=== PATIENT | female | born 1985 | race African-American/Black ===

== ENCOUNTER 2020-06-03 13:18 | Observation (INO) | payer SELFPAY ==
--- NOTE | 2020-06-03 13:29 | PDOC ---
Rapid Medical Evaluation Chief Complaint: Blood Pressure Problem Time Seen by Provider: 06/03/20 13:25 Medical Evaluation: Allergies Allergy/AdvReac Type Severity Reaction Status Date / Time No Known Allergies Allergy Verified 04/02/13 23:15 06/03/20 13:25 I have performed a brief in-person evaluation of this patient. The patient presents with a chief complaint of:sent to ED for elevated BP. Reports dizziness and nausea yesterday similar to when BP is high per pt. Started on nifedipine and labetalol 2 weeks ago. Was not on meds prior to then. Pt crying at triage, states "It's too much". Took leave of absence from job recently Pertinent physical exam findings: BP 195/109, HR 113 I have ordered the following:labs The patient will proceed to the ED for further evaluation Discharge Disposition - Diagnosis Elevated blood alcohol level Qualifiers: Blood alcohol level: level not specified Qualified Code(s): R78.0 - Finding of alcohol in blood - Referrals - Patient Instructions - Post Discharge Activity
[2020-06-03] MEDS ORDERED: LABETALOL HCL 5 MG/1 ML (100MG/20 ML VIAL) IVPUSH ONE ×2 (13:48→16:15)
[2020-06-03] MEDS ORDERED: LABETALOL HCL 5 MG/1 ML (200MG/40ML VIAL) IVPB ONE (16:16)
--- NOTE | 2020-06-03 16:21 | PDOC ---
History of Present Illness - General Chief Complaint: Blood Pressure Problem Stated Complaint: BP PROBLEM Time Seen by Provider: 06/03/20 13:25 History Source: Patient Exam Limitations: No Limitations - History of Present Illness Initial Comments: 06/03/20 16:15 34-year-old female recently diagnosed with hypertension, started on labetalol and Norvasc presents to the ER complaining of generalized weakness, malaise, headache, nausea, nonbloody nonbilious vomiting and loose watery stools. Patient reports that she was started on antihypertensive regiment in the ER and does not have a primary care physician. Patient denies that current headache is the worst headache of her life. Denies chest or abdominal pain. Patient denies shortness of breath. Patient reinforces that she feels "out of it".There is no history of travel or sick contact. Past History - Medical History Allergies/Adverse Reactions: Allergies Allergy/AdvReac Type Severity Reaction Status Date / Time No Known Allergies Allergy Verified 06/03/20 13:28 Home Medications: Ambulatory Orders Labetalol HCl [Normodyne -] 200 mg PO BID 06/03/20 Nifedipine [Procardia Xl] 30 mg PO DAILY 06/03/20 COPD: No HTN: Yes - Reproductive History (#): 4 Para: 0 - Psycho-Social/Smoking History Smoking Status: No Smoking History: Never smoked Number of Cigarettes Smoked Daily: 0 - Substance Abuse Hx (Audit-C & DAST Scrn) How often the patient has a drink containing alcohol: Never Score: In Men: 4 or > Positive; In Women: 3 or > Positive: 0 Screen Result (Pos requires Nsg. Audit-10AR): Negative Review of Systems - Review of Systems Comments:: 06/03/20 16:17 REVIEW OF SYSTEMS CONSTITUTIONAL: No fever, no chills, +fatigue EYES: No visual changes ENT: No ear pain, no sore throat CARDIOVASCULAR: No chest pain, no palpitations RESPIRATORY: No cough, no SOB GI: No abdominal pain, + nausea, + vomiting, no constipation, + diarrhea GENITOURINARY: No dysuria, no frequency, no hematuria MUSKULOSKELETAL: No backpain, no joint pain, no myalgias SKIN: No rash NEURO: + headache *Physical Exam - Vital Signs Last Vital Signs Temp Pulse Resp BP Pulse Ox 98.7 F 85 18 156/93 100 06/03/20 13:24 06/03/20 15:00 06/03/20 15:00 06/03/20 15:00 06/03/20 15:00 - Physical Exam 06/03/20 16:17 EXAMINATION CONSTITUTIONAL: Awake and alert; well-nourished; in no apparent distress HEAD: Normocephalic; atraumatic EYES: PERRL; EOM intact ENMT: External appears normal; Tongue coated (nonremovable) NECK: Supple; non-tender; no jvd; no cervical lymphadenopathy CARD: Normal S1, S2; no murmurs, rubs, or gallops RESP: Normal chest excursion with respiration; breath sounds clear and equal bilaterally; no wheezes, rhonchi, or rales ABD: Soft, non-distended; non-tender; no palpable organomegaly, no palpable hernias EXT: Normal ROM in all four extremities; non-tender to palpation; distal pulses intact SKIN: Warm, dry, no rash NEURO: Cranial nerves II through XII are grossly intact; motor is five 5 x 4; no pronation drift. ED Treatment Course - LABORATORY CBC & Chemistry Diagram: 06/03/20 16:05 06/03/20 16:05 Medical Decision Making - Medical Decision Making 06/03/20 16:19 Patient is a 34-year-old female, recently diagnosed with hypertension, presents with headache (not the worst headache of her life), nausea, vomiting and diarrhea associated with weakness and malaise. Initially patient noted to be hypertensive. CT of head showed no evidence of acute intracranial pathology, no evidence of cerebral edema is noted. Patient remains hypertensive at this time, will administer labetalol IV-20 mg. EKG shows normal sinus rhythm, LVH, prolonged QTC. Will obtain CBC/CMP/mag. Will reassess. Discharge - Discharge Information Problems reviewed: Yes Clinical Impression/Diagnosis: Hypertensive urgency - Follow up/Referral - Patient Discharge Instructions - Post Discharge Activity
[2020-06-03 16:41] LABS: BASO % 0.9 % (0-2.0); EOS % 0.2 % (0-4.5); HEMATOCRIT 33.3 % (32.4-45.2); HEMOGLOBIN 10.8 GM/dL (10.7-15.3); LYMPH % 15.5 % (8-40); MCH 29.5 pg (25.7-33.7); MCHC 32.6 g/dl (32.0-36.0); MEAN CELL VOLUME 90.6 fl (80-96); MEAN PLT VOLUME 9.1 fl (7.5-11.1); MONO % 5.3 % (3.8-10.2); NEUT % 78.1 % (42.8-82.8); PLATELET COUNT 329 K/MM3 (134-434); RBC 3.67 M/mm3 (3.60-5.2); RDW 19.6 % (11.6-15.6); WHITE BLOOD COUNT 5.2 K/mm3 (4.0-10.0)
[2020-06-03 16:47] LABS: PH,URINE >= 9.0 (5.0-8.0); URINE APPEARANCE CLEAR; URINE BILIRUBIN NEGATIVE (NEGATIVE); URINE COLOR YELLOW; URINE GLUCOSE (UA) NEGATIVE (NEGATIVE); URINE KETONE NEGATIVE (NEGATIVE); URINE LEUK ESTERASE NEGATIVE (NEGATIVE); URINE NITRITE NEGATIVE (NEGATIVE); URINE PROTEIN NEGATIVE (NEGATIVE); URINE UROBILINOGEN 0.2 mg/dL (0.2-1.0)
[2020-06-03 17:23] LABS: BILIRUBIN,TOTAL 0.5 mg/dL (0.2-1); BLOOD UREA NITROGEN 8.2 mg/dL (7-18); CREATININE 0.9 mg/dL (0.55-1.3); MAGNESIUM 1.6 mg/dL (1.8-2.4); POTASSIUM 3.8 mmol/L (3.5-5.1); TOT PROT 7.8 g/dl (6.4-8.2)
[2020-06-03] MEDS ORDERED: FAMOTIDINE 20 MG/50 ML IVPB 20 MG/50 ML MG IVPB ONE ×2 (18:02→19:43)
[2020-06-03] MEDS ORDERED: LABETALOL HCL 200 MG TABLET (FP) PO ONE (18:02)
[2020-06-03] MEDS ORDERED: NIFEdipine 10 MG CAPSULE (FP) PO ONE (18:02)
[2020-06-03] MEDS ORDERED: ONDANSETRON 4 MG/2 ML VIAL IVPUSH ONE (18:02)
[2020-06-03] MEDS ORDERED: MAG HYDROX/AL HYDROX/SIMETH -MYLANTA- ORAL SUSPENSION PO ONE (18:02)
--- NOTE | 2020-06-03 18:11 | PDOC ---
*Physical Exam - Vital Signs Last Vital Signs Temp Pulse Resp BP Pulse Ox 98.7 F 85 18 169/96 100 06/03/20 13:24 06/03/20 15:00 06/03/20 15:00 06/03/20 17:03 06/03/20 15:00 ED Treatment Course - LABORATORY CBC & Chemistry Diagram: 06/03/20 16:05 06/03/20 16:05 - ADDITIONAL ORDERS Additional order review: Laboratory Results 06/03/20 06/03/20 16:05 16:05 Sodium 144 Potassium 3.8 Chloride 108 H Carbon Dioxide 24 Anion Gap 12 BUN 8.2 Creatinine 0.9 Est GFR (CKD-EPI)AfAm 95.34 Est GFR (CKD-EPI)NonAf 82.26 Random Glucose 84 Calcium 9.0 Magnesium 1.6 L Total Bilirubin 0.5 AST 23 ALT 25 Alkaline Phosphatase 55 Troponin I 0.32 H Total Protein 7.8 Albumin 4.0 Urine Color Yellow Urine Appearance Clear Urine pH >= 9.0 H D Ur Specific [place] 1.009 L Urine Protein Negative Urine Glucose (UA) Negative Urine Ketones Negative Urine Blood Negative Urine Nitrite Negative Urine Bilirubin Negative Urine Urobilinogen 0.2 Ur Leukocyte Esterase Negative 06/03/20 16:05 RBC 3.67 MCV 90.6 MCHC 32.6 RDW 19.6 H MPV 9.1 Neutrophils % 78.1 Lymphocytes % 15.5 Monocytes % 5.3 Eosinophils % 0.2 Basophils % 0.9 - Medications Given in the ED: ED Medications Discontinued Medications Generic Name Dose Route Start Last Admin Trade Name Freq PRN Reason Stop Dose Admin Labetalol HCl 20 mg 06/03/20 13:48 06/03/20 14:50 Normodyne Injection - IVPUSH 06/03/20 13:49 Not Given ONCE ONE Labetalol HCl 20 mg 06/03/20 16:15 06/03/20 16:31 Normodyne Injection - IVPUSH 06/03/20 16:16 Not Given ONCE ONE ED Progress Note - Progress Note Progress Note: 06/03/20 18:05 Recieved pt on signout at 1630pm from Dr. Pandey. Briefly 34yoF w/ recent dx of HTN presented w/ headache, malaise, nausea, vomiting and elevated BP. Pt had screening labs unremrakble, nonishcemic EKG, nomal HCT, BP improvement w/ labetalol in ED and plan for completion of lab results and admit for hypertensive urgency. Pt reevaluated by me. She was noted to be going to the bathroom repeatedly in the ED w/ vomiting. Pt states she has acute onset of n/v/d x today, unknown trigger. No more headache, feels malaise and "run down." States that she vomited up her antiHTN pills this morning and has not tolerating PO today. No abd pain, no hematemesis, no brbpr, unknown if ate unusual food, no known sick contacts, no fevers. Vital signs reviewed, pt w/ persistent HTN in the ED -- not severe. NAD RRR CTABL abd obese, soft, NTND, no guarding, no rebound. gait, balance, speech WNL A&O x 3 Labs reviewed, normal LFTs, normal Bili, no lipase, normal renal fxn. Unclear at this this if elevated BP is causing n/v/d or if lack of BP medications today becuase of n/v/d is causing elevated BP. Will try sxs control and administration of home labetalol dose and small dose immed release nifedipine (takes nifed XL in the morning), IVF for fluid losses. Continue with plan for admission and obs w/ sxs and BP management. Discharge - Discharge Information Problems reviewed: Yes Clinical Impression/Diagnosis: Hypertensive urgency, Nausea and vomiting Condition: Good - Admission Yes - Follow up/Referral - Patient Discharge Instructions - Post Discharge Activity
[2020-06-03] MEDS ORDERED: LACTATED RINGERS SOLUTION 1,000 ML/1,000 ML INFUS.BAG IV SCH (18:15)
[2020-06-03] MEDS ORDERED: LABETALOL HCL 100 MG TABLET (FP) ONE (19:43)
[2020-06-03] MEDS ORDERED: MAG HYDROX/AL HYDROX/SIMETH 30 ML UNIT-DOSE CUP ONE (19:43)
[2020-06-03] MEDS ORDERED: METOCLOPRAMIDE HCL 10 MG TABLET (FP) PO PRN (22:19)
[2020-06-03 22:36] LABS: MAGNESIUM 1.3 mg/dL (1.8-2.4)
--- NOTE | 2020-06-03 22:59 | HP ---
CHIEF COMPLAINT: High Blood Pressure PCP: HISTORY OF PRESENT ILLNESS: 34 y.o. F H HTN presents to the ED due to high blood pressure. Patient stated 2 days ago she started to feel weak, dizzy and nauseas. She stated she had not had any improvement in her symptoms. Has had 3 episodes of NBNB emesis and a few episodes of diarrhea that are brown in color. Patient was diagnosed with HTN 1 year ago but has had difficulty affording medications. She was here 2 weeks ago with a similar clinical picture and was discharged on 200mg labetalol BID & nifedipine 30mg daily. Currently she is complainng of dizzines, weakness, chills and SOB upon exertion but denies any chest pain. LMP a few days ago and is on leave from her job at [employer]. ER course was notable for: (1) Labetalol (2) EKG (3) Zofran Recent Travel: None PAST MEDICAL HISTORY: Hypertension PAST SURGICAL HISTORY: Myomectomy Social History: Smoking: No Alcohol:No Drugs: No Allergies No Known Allergies Allergy (Verified 06/03/20 13:28) HOME MEDICATIONS: Home Medications Medication Instructions Recorded Labetalol HCl [Normodyne -] 200 mg PO BID 06/03/20 Nifedipine [Procardia Xl] 30 mg PO DAILY 06/03/20 REVIEW OF SYSTEMS CONSTITUTIONAL: Generalized weakness, chills, Absent: fever, diaphoresis, malaise, loss of appetite, weight change HEENT: Absent: rhinorrhea, nasal congestion, throat pain, throat swelling, difficulty swallowing, mouth swelling, ear pain, eye pain, visual changes CARDIOVASCULAR: Absent: chest pain, syncope, palpitations, irregular heart rate, lightheadedness, peripheral edema RESPIRATORY: Absent: cough, shortness of breath, dyspnea with exertion, orthopnea, wheezing, stridor, hemoptysis GASTROINTESTINAL: Nausea, Absent: abdominal pain, abdominal distension, vomiting, diarrhea, constipation, melena, hematochezia GENITOURINARY: Absent: dysuria, frequency, urgency, hesitancy, hematuria, flank pain, genital pain MUSCULOSKELETAL: Absent: myalgia, arthralgia, joint swelling, back pain, neck pain SKIN: Absent: rash, itching, pallor HEMATOLOGIC/IMMUNOLOGIC: Absent: easy bleeding, easy bruising, lymphadenopathy, frequent infections ENDOCRINE: Absent: unexplained weight gain, unexplained weight loss, heat intolerance, cold intolerance NEUROLOGIC: Absent: headache, focal weakness or paresthesias, dizziness, unsteady gait, seizure, mental status changes, bladder or bowel incontinence PSYCHIATRIC: Absent: anxiety, depression, suicidal or homicidal ideation, hallucinations. PHYSICAL EXAMINATION Vital Signs - 24 hr 06/03/20 06/03/20 06/03/20 13:24 15:00 17:03 Temperature 98.7 F Pulse Rate 113 H Pulse Rate [ 85 Apical] Respiratory 20 18 Rate Blood Pressure 185/109 H Blood Pressure 156/93 169/96 [Left Arm] O2 Sat by Pulse 99 100 Oximetry (%) 06/03/20 06/03/20 06/03/20 17:45 18:00 19:54 Temperature Pulse Rate Pulse Rate [ 81 81 86 Apical] Respiratory 19 19 20 Rate Blood Pressure Blood Pressure 181/97 H 178/97 H 199/108 H [Left Arm] O2 Sat by Pulse 100 100 97 Oximetry (%) 06/03/20 20:54 Temperature Pulse Rate Pulse Rate [ 92 H Apical] Respiratory 24 H Rate Blood Pressure Blood Pressure 148/81 [Left Arm] O2 Sat by Pulse 100 Oximetry (%) GENERAL: Awake, alert, and fully oriented, in no acute distress. HEAD: Normal with no signs of trauma. EYES: Pupils equal, round and reactive to light, extraocular movements intact, sclera anicteric, conjunctiva clear. EARS, NOSE, THROAT: Oropharynx clear without exudates. NECK: No JVD, or masses. LUNGS: Breath sounds equal, clear to auscultation bilaterally. No wheezes, and no crackles. No accessory muscle use. HEART: Regular rate and rhythm, normal S1 and S2 without murmur, rub or gallop. ABDOMEN: Soft, nontender, not distended, normoactive bowel sounds, no guarding, no rebound, no masses. MUSCULOSKELETAL: Normal range of motion at all joints. No bony deformities or tenderness. No CVA tenderness. UPPER EXTREMITIES: 2+ pulses, warm, well-perfused. LOWER EXTREMITIES: 2+ pulses, warm, well-perfused. NEUROLOGICAL: Cranial nerves II-XII intact. Normal speech. PSYCHIATRIC: Cooperative. Good eye contact. Appropriate mood and affect. SKIN: Warm, dry, normal turgor, no rashes or lesions noted. Laboratory Results - last 24 hr 06/03/20 06/03/20 06/03/20 16:00 16:05 16:05 WBC 5.2 RBC 3.67 Hgb 10.8 Hct 33.3 MCV 90.6 MCH 29.5 MCHC 32.6 RDW 19.6 H Plt Count 329 MPV 9.1 Absolute Neuts (auto) 4.1 Neutrophils % 78.1 Lymphocytes % 15.5 Monocytes % 5.3 Eosinophils % 0.2 Basophils % 0.9 Nucleated RBC % 0 Sodium Potassium Chloride Carbon Dioxide Anion Gap BUN Creatinine Est GFR (CKD-EPI)AfAm Est GFR (CKD-EPI)NonAf Random Glucose Calcium Magnesium Total Bilirubin AST ALT Alkaline Phosphatase Troponin I Total Protein Albumin Urine Color Yellow Urine Appearance Clear Urine pH >= 9.0 H D Ur Specific [place] 1.009 L Urine Protein Negative Urine Glucose (UA) Negative Urine Ketones Negative Urine Blood Negative Urine Nitrite Negative Urine Bilirubin Negative Urine Urobilinogen 0.2 Ur Leukocyte Esterase Negative Urine HCG, Qual Negative 06/03/20 06/03/20 16:05 21:50 WBC RBC Hgb Hct MCV MCH MCHC RDW Plt Count MPV Absolute Neuts (auto) Neutrophils % Lymphocytes % Monocytes % Eosinophils % Basophils % Nucleated RBC % Sodium 144 Potassium 3.8 Chloride 108 H Carbon Dioxide 24 Anion Gap 12 BUN 8.2 Creatinine 0.9 Est GFR (CKD-EPI)AfAm 95.34 Est GFR (CKD-EPI)NonAf 82.26 Random Glucose 84 Calcium 9.0 Magnesium 1.6 L 1.3 L Total Bilirubin 0.5 AST 23 ALT 25 Alkaline Phosphatase 55 Troponin I 0.32 H 0.33 H Total Protein 7.8 Albumin 4.0 Urine Color Urine Appearance Urine pH Ur Specific [place] Urine Protein Urine Glucose (UA) Urine Ketones Urine Blood Urine Nitrite Urine Bilirubin Urine Urobilinogen Ur Leukocyte Esterase Urine HCG, Qual ASSESSMENT/PLAN: 34 y.o. F PMH HTN presents to the ED due to high blood pressure. # Hypertensive Emergency - BP 199/108, will continue to monitor - Troponin 0.32, 0.33, will trend - Cardiac consult (Dr. Logan) - Goal BP in 160's/90's in 12 hrs - Labetalol 200mg PO - Nifedipine 30mg PO - Asprin 325 - Atorvastatin 80mg - Repeat EKG - Admission to telemetry - Vitals Q4 # Nausea/Vomiting - QTc prolonged (516ms) - Reglan # Obesity - Will preparole counseling aide on weight loss management # FEN - LR 1L # Covid - Covid PCR pending - PCR ordered due to geographic location of the pandemic - Placed in isolation precautions # DVT Prophylaxis - Lovenox 40mg SQ daily # Dispo - Continue to monitor on tele Visit type - Emergency Visit Emergency Visit: Yes ED Registration Date: 06/03/20 Care time: The patient presented to the Emergency Department on the above date and was hospitalized for further evaluation of their emergent condition. - New Patient This patient is new to me today: Yes Date on this admission: 06/03/20 - Critical Care Critical Care patient: No ATTENDING PHYSICIAN STATEMENT I saw and evaluated the patient. I reviewed the resident's note and discussed the case with the resident. I agree with the resident's findings and plan as documented. SUBJECTIVE: OBJECTIVE: ASSESSMENT AND PLAN:
--- NOTE | 2020-06-03 23:14 | PN ---
Teaching Attending Note Name of Resident: Desmond Heaton ATTENDING PHYSICIAN STATEMENT I saw and evaluated the patient. I reviewed the resident's note and discussed the case with the resident. I agree with the resident's findings and plan as documented. SUBJECTIVE: This is a 34 year old woman with a history of HTN, recently admitted for hypertensive and discharged on Labetalol and Procardia, who comes to the ED complaining of weakness, dizziness, nausea and vomiting. OBJECTIVE: Vital Signs Period Temp Pulse Resp BP Sys/Patel Pulse Ox Last 24 Hr 98.7 F 81-113 18-24 148-199/81-109 97-100 HEART: S1S2, RRR LUNGS: Clear ABDOMEN: Obese, soft, non-tender, non-distended, normal BS EXTREMITIES: No edema Laboratory Tests 06/03/20 06/03/20 06/03/20 16:00 16:05 16:05 WBC 5.2 RBC 3.67 Hgb 10.8 Hct 33.3 MCV 90.6 MCH 29.5 MCHC 32.6 RDW 19.6 H Plt Count 329 MPV 9.1 Absolute Neuts (auto) 4.1 Neutrophils % 78.1 Lymphocytes % 15.5 Monocytes % 5.3 Eosinophils % 0.2 Basophils % 0.9 Nucleated RBC % 0 Sodium Potassium Chloride Carbon Dioxide Anion Gap BUN Creatinine Est GFR (CKD-EPI)AfAm Est GFR (CKD-EPI)NonAf Random Glucose Calcium Magnesium Total Bilirubin AST ALT Alkaline Phosphatase Troponin I Total Protein Albumin Urine Color Yellow Urine Appearance Clear Urine pH >= 9.0 H D Ur Specific [place] 1.009 L Urine Protein Negative Urine Glucose (UA) Negative Urine Ketones Negative Urine Blood Negative Urine Nitrite Negative Urine Bilirubin Negative Urine Urobilinogen 0.2 Ur Leukocyte Esterase Negative Urine HCG, Qual Negative 06/03/20 06/03/20 16:05 21:50 WBC RBC Hgb Hct MCV MCH MCHC RDW Plt Count MPV Absolute Neuts (auto) Neutrophils % Lymphocytes % Monocytes % Eosinophils % Basophils % Nucleated RBC % Sodium 144 Potassium 3.8 Chloride 108 H Carbon Dioxide 24 Anion Gap 12 BUN 8.2 Creatinine 0.9 Est GFR (CKD-EPI)AfAm 95.34 Est GFR (CKD-EPI)NonAf 82.26 Random Glucose 84 Calcium 9.0 Magnesium 1.6 L 1.3 L Total Bilirubin 0.5 AST 23 ALT 25 Alkaline Phosphatase 55 Troponin I 0.32 H 0.33 H Total Protein 7.8 Albumin 4.0 Urine Color Urine Appearance Urine pH Ur Specific [place] Urine Protein Urine Glucose (UA) Urine Ketones Urine Blood Urine Nitrite Urine Bilirubin Urine Urobilinogen Ur Leukocyte Esterase Urine HCG, Qual Home Medications Medication Instructions Recorded Labetalol HCl [Normodyne -] 200 mg PO BID 06/03/20 Nifedipine [Procardia Xl] 30 mg PO DAILY 06/03/20 ASSESSMENT AND PLAN: This is a 34 year old woman with a history of HTN, medication non-compliance who presented to the ED with dizziness, weakness, and nausea/vomiting. 1. Hypertensive emergency - Restart Labetalol, Procardia - Echo 05/19/20 showed moderate concentric LVH, impaired LV relaxation, mildly dilated LA, trace TR 2. Demand ischemia - Monitor on telemetry - Serial troponins - Aspirin 3. Hypomagnesemia - Supplement magnesium
[2020-06-04] MEDS ORDERED: LABETALOL HCL 100 MG TABLET (FP) ONE (08:28)
[2020-06-04] MEDS: LABETALOL HCL 200 MG TABLET (FP) PO SCH ×3 (08:31→21:47)
[2020-06-04 09:44] LABS: BASO % 0.7 % (0-2.0); EOS % 0.6 % (0-4.5); HEMOGLOBIN 10.8 GM/dL (10.7-15.3); LYMPH % 13.6 % (8-40); MCH 29.6 pg (25.7-33.7); MCHC 32.7 g/dl (32.0-36.0); MEAN CELL VOLUME 90.4 fl (80-96); MEAN PLT VOLUME 8.7 fl (7.5-11.1); NEUT % 79.1 % (42.8-82.8); PLATELET COUNT 299 K/MM3 (134-434); RBC 3.65 M/mm3 (3.60-5.2); RDW 19.5 % (11.6-15.6); WHITE BLOOD COUNT 5.4 K/mm3 (4.0-10.0)
[2020-06-04] MEDS ORDERED: NIFEdipine 10 MG CAPSULE (FP) PO SCH (10:00)
[2020-06-04] MEDS ORDERED: NIFEdipine E.R. 30 MG TABLET PO SCH ×2 (10:00)
[2020-06-04] MEDS ORDERED: LABETALOL HCL 200 MG TABLET (FP) PO SCH (10:00)
[2020-06-04] MEDS ORDERED: NIFEdipine E.R. 30 MG TABLET ONE (10:18)
[2020-06-04] MEDS ORDERED: ENOXAPARIN NA (PORCINE) 40 MG/0.4 ML DISP.SYRIN SQ ONE (10:18)
[2020-06-04] MEDS: ENOXAPARIN NA (PORCINE) 40 MG/0.4 ML DISP.SYRIN SQ SCH (10:22)
[2020-06-04 10:46] LABS: ALBUMIN 3.8 g/dl (3.4-5.0); BILIRUBIN,TOTAL 1.1 mg/dL (0.2-1); BLOOD UREA NITROGEN 5.7 mg/dL (7-18); CALCIUM 8.9 mg/dL (8.5-10.1); CREATININE 0.9 mg/dL (0.55-1.3); MAGNESIUM 1.5 mg/dL (1.8-2.4); PHOSPHOROUS 3.3 mg/dL (2.5-4.9); POTASSIUM 3.5 mmol/L (3.5-5.1); TOT PROT 7.6 g/dl (6.4-8.2)
--- NOTE | 2020-06-04 11:51 | EKG ---
Test Reason : Blood Pressure : / mmHG Vent. Rate : 080 BPM Atrial Rate : 080 BPM P-R Int : 164 ms QRS Dur : 104 ms QT Int : 448 ms P-R-T Axes : 041 038 046 degrees QTc Int : 516 ms NORMAL SINUS RHYTHM POSSIBLE LEFT ATRIAL ENLARGEMENT PROLONGED QT ABNORMAL ECG NO PREVIOUS ECGS AVAILABLE Confirmed by TIANNA PARR, RALPH ([id number]) on 06/04/2020 11:50:53 AM Referred By: Confirmed By:RALPH WYNN MD
--- NOTE | 2020-06-04 11:53 | EKG ---
Test Reason : Blood Pressure : / mmHG Vent. Rate : 080 BPM Atrial Rate : 080 BPM P-R Int : 156 ms QRS Dur : 102 ms QT Int : 434 ms P-R-T Axes : 051 055 061 degrees QTc Int : 500 ms NORMAL SINUS RHYTHM CANNOT RULE OUT ANTERIOR INFARCT , AGE UNDETERMINED PROLONGED QT ABNORMAL ECG WHEN COMPARED WITH ECG OF 03-JUN-2020 15:31, NO SIGNIFICANT CHANGE WAS FOUND Confirmed by TIANNA PARR, RALPH ([id number]) on 06/04/2020 11:52:53 AM Referred By: Confirmed By:RALPH WYNN MD
--- NOTE | 2020-06-04 12:16 | CON.CARD ---
Consult Consult Specialty:: Cardiology Reason for Consultation:: HTN urgency - History of Present Illness Chief Complaint: Headache History of Present Illness: This is a 34 year old female with HTN. She does not see a PCP on a regular basis. She was recently started on Labetolol and Nifedipine for HTN but has questionable adherence. She presents to the ED with generalized weakness, malaise, headache, vomiting, and diarrhea. Peak BP was 191/103 mmHg, currently BP is 151/85 mmHg. Troponins are 0.33, 0.27 EKG NSR at 80 BPM with A QTC OF 512, normal axis, and NSSTTW changes. - Past Medical History ...LMP: 10/23/12 - Smoking History Smoking history: Never smoked Aproximately how many cigarettes per day: 0 Home Medications - Allergies Allergies/Adverse Reactions: Allergies Allergy/AdvReac Type Severity Reaction Status Date / Time No Known Allergies Allergy Verified 06/03/20 13:28 - Home Medications Home Medications: Ambulatory Orders Labetalol HCl [Normodyne -] 200 mg PO BID 06/03/20 Nifedipine [Procardia Xl] 30 mg PO DAILY 06/03/20 Vital Signs: Vital Signs Temperature 98.6 F 06/04/20 10:50 Pulse Rate 82 06/04/20 10:50 Respiratory Rate 18 06/04/20 10:50 Blood Pressure 151/85 06/04/20 10:50 O2 Sat by Pulse Oximetry (%) 100 06/04/20 10:50 Constitutional: Yes: No Distress Eyes: Yes: WNL HENT: Yes: WNL Neck: Yes: WNL Respiratory: Yes: CTA Bilaterally Gastrointestinal: Yes: Soft Cardiovascular: Yes: Regular Rate and Rhythm Heart Sounds: Yes: S1, S2 Edema: No Neurological: Yes: Alert, Oriented - Other Data Labs, Other Data: CBC, BMP 06/04/20 09:30 06/04/20 09:30 Troponin, BNP 06/03/20 06/03/20 06/04/20 16:05 21:50 09:30 Troponin I 0.32 H 0.33 H 0.27 H Troponin, BNP 06/03/20 06/03/20 06/04/20 16:05 21:50 09:30 Troponin I 0.32 H 0.33 H 0.27 H Assessment/Plan 34 year old female with HTN. She does not see a PCP on a regular basis. She was recently started on Labetolol and Nifedipine for HTN but has questionable adherence. She presents to the ED with generalized weakness, malaise, headache, vomiting, and diarrhea. Peak BP was 191/103 mmHg, currently BP is 151/85 mmHg. Troponins are 0.33, 0.27 EKG NSR at 80 BPM with A QTC OF 512, normal axis, and NSSTTW changes. HTN BP is coming under better control control Would increase Nifedipine XL to 60 mg PO daily Continue Labetolol 200 PO BID Needs a PCP for regular follow up Positive troponins Most likely demand ischemia secondary to high BP's causing increased afterload Follow the troponin trends Obtain an echocardiogram looking for wall motion abnormalities Would consider stress testing with stable with well controlled BP's as an outpatient
[2020-06-04] MEDS ORDERED: NIFEdipine E.R. 30 MG TABLET PO ONE ×2 (15:10→20:00)
--- NOTE | 2020-06-04 15:16 | PN ---
Teaching Attending Note Name of Resident: Jhonathan Alvarado ATTENDING PHYSICIAN STATEMENT I saw and evaluated the patient. I reviewed the resident's note and discussed the case with the resident. I agree with the resident's findings and plan as documented. SUBJECTIVE: No fever or chills. No pain. no moran , no visual changes. admits to not being compliant with her meds . denies CP or exertional CP , or SOB. OBJECTIVE: NAD Cv: RRR Lungs: CTAB ext : No edema or erythema Abd: soft, obese, NT, Nd , no bruits over renal arteries ASSESSMENT AND PLAN: 34 y/o lady with h/o HTN, non compliance , who presented with N/V, and was found to have HTN emergency 1- HTN emergency: due to non compliance - cont labetalol - increase nifedipine . - No renal artery bruits, but might need secondary HTN w/u as out pt 2- Elevated trop, due to demand ischemia. trended down, EKG with no ischemci changes. prolonged QTC - needs stress as out pt - echo 3- replete hypomagnesemia needs better bp control .
[2020-06-04] MEDS ORDERED: MAGNESIUM SULF 50% (8.12 MEQ/2 ML-1 GM VIAL) IVPB ONE (15:17)
--- NOTE | 2020-06-04 16:06 | ECHO ---
Name: BUTLERNICOLAS Exam:Adult Echocardiogram Study Date: 06/04/2020 03:29 PM Age: 34 yrs Reason For Study: Elevated Troponins Height: 66 in Weight: 214 lb BSA: 2.1 m2 MMode/2D Measurements & Calculations RVDd: 3.6 cm Ao root diam: 3.3 cm IVSd: 1.5 cm LA dimension: 4.1 cm LVIDd: 3.9 cm ACS: 2.3 cm LVIDs: 2.4 cm LVPWd: 1.6 cm EDV(Teich): 65.7 ml LVOT diam: 2.0 cm ESV(Teich): 21.0 ml LAV (MOD-bp): 96.0 ml TAPSE: 1.5 cm RV S Rob: 15.4 cm/sec Doppler Measurements & Calculations MV E max rob: 64.2 cm/sec Ao V2 max: 137.1 cm/sec MV A max rob: 86.4 cm/sec Ao max P.5 mmHg MV E/A: 0.74 Ao V2 mean: 88.0 cm/sec MV dec time: 0.22 sec Ao mean P.7 mmHg Ao V2 VTI: 20.8 cm DANITZA(I,D): 3.2 cm2 DANITZA(V,D): 2.5 cm2 LV V1 max P.5 mmHg SV(LVOT): 66.5 ml LV V1 mean P.6 mmHg LV V1 max: 106.6 cm/sec LV V1 mean: 75.1 cm/sec LV V1 VTI: 20.6 cm PA V2 max: 105.9 cm/sec Med Peak E' Rob: 8.2 cm/sec PA max P.5 mmHg Med E/e': 7.8 PA acc slope: 516.0 cm/sec2 Lat Peak E' Rob: 5.8 cm/sec PA acc time: 0.17 sec Lat E/e': 11.0 PA pr(Accel): 4.5 mmHg Procedure A complete two-dimensional transthoracic echocardiogram was performed (2D, M-mode, Doppler and color flow Doppler). Left Ventricle There is moderate concentric left ventricular hypertrophy. The left ventricular ejection fraction is normal. Ejection Fraction = 55-60%. The left ventricular wall motion is normal. Right Ventricle The right ventricle is normal in size and function. Atria Normal left and right atrial size and function. Mitral Valve There is no mitral regurgitation noted. Tricuspid Valve There is trace tricuspid regurgitation. There was insufficient TR detected to calculate RV systolic p ressure. Aortic Valve No hemodynamically significant valvular aortic stenosis. No aortic regurgitation is present. Pulmonic Valve There is no pulmonic valvular regurgitation. Great Vessels The aortic root is normal size. Pericardium/Pleura There is no pericardial effusion. Interpretation Summary There is moderate concentric left ventricular hypertrophy. The left ventricular ejection fraction is normal. The right ventricle is normal in size and function. There is trace tricuspid regurgitation. MD Jordy Hurtado 06/04/2020 04:06 PM
[2020-06-04 17:58] VITALS: BMI 34.8
--- NOTE | 2020-06-04 18:58 | PN ---
Physical Exam: SUBJECTIVE: No overnight events. Patient seen and examined. NAD. C/o nausea. Denies vomiting, FORD, dizziness. ROS negative except as above. OBJECTIVE: Vital Signs Period Temp Pulse Resp BP Sys/Patel Pulse Ox Last 24 Hr 98.2 F-98.7 F 73-92 17-24 148-199/81-108 97-100 GENERAL: The patient is awake, alert, and fully oriented, in no acute distress. HEAD: Normal with no signs of trauma. EYES: sclera anicteric, conjunctiva clear. No ptosis. ENT: Ears normal, nares patent, moist mucous membranes. NECK: no JVD LUNGS: Breath sounds equal, clear to auscultation bilaterally, no wheezes, no crackles, no accessory muscle use. HEART: Regular rate and rhythm, S1, S2 without murmur, rub or gallop. ABDOMEN: Soft, nontender, nondistended, normoactive bowel sounds, no guarding, no bruits over renal arteries EXTREMITIES: 2+ pulses, warm, well-perfused, no edema. NEUROLOGICAL: Normal speech, gait not observed. PSYCH: Normal mood, normal affect. SKIN: Warm, dry, normal turgor, no rashes or lesions noted Laboratory Results - last 24 hr 06/03/20 06/03/20 06/04/20 16:00 21:50 09:30 WBC 5.4 RBC 3.65 Hgb 10.8 Hct 33.0 MCV 90.4 MCH 29.6 MCHC 32.7 RDW 19.5 H Plt Count 299 MPV 8.7 Absolute Neuts (auto) 4.3 Neutrophils % 79.1 Lymphocytes % 13.6 Monocytes % 6.0 Eosinophils % 0.6 D Basophils % 0.7 Nucleated RBC % 0 Sodium Potassium Chloride Carbon Dioxide Anion Gap BUN Creatinine Est GFR (CKD-EPI)AfAm Est GFR (CKD-EPI)NonAf Random Glucose Calcium Phosphorus Magnesium 1.3 L Total Bilirubin AST ALT Alkaline Phosphatase Troponin I 0.33 H Total Protein Albumin Urine HCG, Qual Negative 06/04/20 09:30 WBC RBC Hgb Hct MCV MCH MCHC RDW Plt Count MPV Absolute Neuts (auto) Neutrophils % Lymphocytes % Monocytes % Eosinophils % Basophils % Nucleated RBC % Sodium 139 Potassium 3.5 Chloride 104 Carbon Dioxide 23 Anion Gap 12 BUN 5.7 L Creatinine 0.9 Est GFR (CKD-EPI)AfAm 95.34 Est GFR (CKD-EPI)NonAf 82.26 Random Glucose 89 Calcium 8.9 Phosphorus 3.3 Magnesium 1.5 L Total Bilirubin 1.1 H AST 21 ALT 23 Alkaline Phosphatase 56 Troponin I 0.27 H Total Protein 7.6 Albumin 3.8 Urine HCG, Qual Active Medications Generic Name Dose Route Start Last Admin Trade Name Freq PRN Reason Stop Dose Admin Aspirin 325 mg 06/04/20 22:22 Ecotrin - PO 06/04/20 22:23 ONCE ONE Aspirin 81 mg 06/04/20 20:00 Ecotrin - PO DAILY YASIR Enoxaparin Sodium 40 mg 06/04/20 10:00 06/04/20 10:22 Lovenox - SQ 40 mg DAILY YASIR Administration Labetalol HCl 200 mg 06/04/20 08:30 06/04/20 09:59 Normodyne - PO Not Given BID YASIR Metoclopramide HCl 10 mg 06/03/20 22:19 Reglan - PO TIDAC PRN NAUSEA AND/OR VOMITING Nifedipine 30 mg 06/04/20 20:00 Procardia Xl - PO 06/04/20 20:01 ONCE ONE Nifedipine 90 mg 06/05/20 10:00 Procardia Xl - PO DAILY [facility] echo: moderate concentric L ventricular hypertrophy, trace tricuspid regurg ASSESSMENT/PLAN: 34 YO F PMH HTN (non compliant w/ rx) p/w weakness, dizziness, nausea, NBNB emesis, non-bloody diarrhea. Admitted for HTN emergency. #HTN emergency 2/2 rx non-compliance -c/w labetalol 200 mg -increase nifedipined to 90 mg b/c pt's bp still elevated at 180s -reglan for nausea -further workup for pt's HTN outpt b/c was not able to appreciate renal artery bruits on PE #Positive troponins -cardio c/s appreciated. increased troponins from demand ischemia 2/2 elevated BPs resulting in increased afterload -will monitor troponin -echo ordered to assess wall abnmlities: moderate concentric L ventricular hypertrophy, trace tricuspid regurg -stress test outpt #hypomagnesemia Mg repleted #FEN no IV fluids monitor lytes, Mg sodium controlled diet #DVT PPX lovenox 40 sq #DISPO maintain med surg Visit type - Emergency Visit Emergency Visit: Yes ED Registration Date: 06/03/20 Care time: The patient presented to the Emergency Department on the above date and was hospitalized for further evaluation of their emergent condition. - New Patient This patient is new to me today: Yes Date on this admission: 06/10/20 - Critical Care Critical Care patient: No ATTENDING PHYSICIAN STATEMENT I saw and evaluated the patient. I reviewed the resident's note and discussed the case with the resident. I agree with the resident's findings and plan as documented. SUBJECTIVE: OBJECTIVE: ASSESSMENT AND PLAN:
[2020-06-04] MEDS: ASPIRIN COATED 81 MG TABLET.EC PO SCH (21:47)
[2020-06-04] MEDS ORDERED: ASPIRIN 325 MG ENTERIC COATED TABLET (FP) PO ONE (22:22)
[2020-06-05 06:40] LABS: BASO % 0.8 % (0-2.0); EOS % 2.9 % (0-4.5); HEMOGLOBIN 11.9 GM/dL (10.7-15.3); LYMPH % 18.7 % (8-40); MCH 29.1 pg (25.7-33.7); MCHC 32.1 g/dl (32.0-36.0); MEAN CELL VOLUME 90.4 fl (80-96); MEAN PLT VOLUME 9.2 fl (7.5-11.1); MONO % 4.2 % (3.8-10.2); NEUT % 73.4 % (42.8-82.8); PLATELET COUNT 311 K/MM3 (134-434); RBC 4.09 M/mm3 (3.60-5.2); RDW 19.5 % (11.6-15.6)
[2020-06-05 07:08] LABS: ALBUMIN 3.8 g/dl (3.4-5.0); BILIRUBIN,TOTAL 0.9 mg/dL (0.2-1); BLOOD UREA NITROGEN 7.9 mg/dL (7-18); CALCIUM 9.2 mg/dL (8.5-10.1); CREATININE 0.9 mg/dL (0.55-1.3); PHOSPHOROUS 3.3 mg/dL (2.5-4.9); POTASSIUM 3.6 mmol/L (3.5-5.1); TOT PROT 7.6 g/dl (6.4-8.2)
[2020-06-05] MEDS: ASPIRIN COATED 81 MG TABLET.EC PO SCH (09:36)
[2020-06-05] MEDS: ENOXAPARIN NA (PORCINE) 40 MG/0.4 ML DISP.SYRIN SQ SCH (09:37)
[2020-06-05] MEDS: LABETALOL HCL 200 MG TABLET (FP) PO SCH (09:37)
[2020-06-05] MEDS ORDERED: NIFEdipine E.R. 30 MG TABLET PO SCH (10:00)
[2020-06-05] MEDS ORDERED: NIFEdipine E.R. 90 MG TABLET PO SCH (10:00)
--- NOTE | 2020-06-05 15:56 | PN ---
Teaching Attending Note Name of Resident: Jhonathan Alvarado ATTENDING PHYSICIAN STATEMENT I saw and evaluated the patient. I reviewed the resident's note and discussed the case with the resident. I agree with the resident's findings and plan as documented. SUBJECTIVE: no fever or chills. No pain , no SOB. no CP . OBJECTIVE: NAD Cv: RRR Lungs: CTAB ext : No edema or erythema ASSESSMENT AND PLAN: 34 y/o lady with h/o HTN, non compliance , who presented with N/V, and was found to have HTN emergency 1- HTN emergency: due to non compliance - cont labetalol - cont nifedipine at 90 ( had to increase yesterday due to uncontrolled bP ) . -might need secondary HTN w/u as out pt 2- Elevated trop, due to demand ischemia. trended down, EKG with no ischemci changes. prolonged QTC - needs stress as out pt - echo reviewed. dc home today . stressed the importance of compliance , diet, and exercise
[2020-06-05 17:09] VITALS: BP 150/94; PULSE 77; TEMP 98.2
--- NOTE | 2020-06-05 22:10 | DS ---
Physical Exam: SUBJECTIVE: No overnight events. Patient seen and examined. NAD. Denies N/V, FORD, dizziness. ROS negative. OBJECTIVE: Vital Signs Period Temp Pulse Resp BP Sys/Patel Pulse Ox Last 24 Hr 97.7 F-98.9 F 77-91 16-20 140-164/71-98 98 PHYSICAL EXAM GENERAL: The patient is awake, alert, and fully oriented, in no acute distress. HEAD: Normal with no signs of trauma. EYES: sclera anicteric, conjunctiva clear. No ptosis. ENT: Ears normal, nares patent, moist mucous membranes. NECK: no JVD LUNGS: Breath sounds equal, clear to auscultation bilaterally, no wheezes, no crackles, no accessory muscle use. HEART: Regular rate and rhythm, S1, S2 without murmur, rub or gallop. ABDOMEN: Soft, nontender, nondistended, normoactive bowel sounds, no guarding, no bruits over renal arteries EXTREMITIES: 2+ pulses, warm, well-perfused, no edema. NEUROLOGICAL: Normal speech, gait not observed. PSYCH: Normal mood, normal affect. SKIN: Warm, dry, normal turgor, no rashes or lesions noted LABS Laboratory Results - last 24 hr 06/03/20 06/05/20 06/05/20 20:11 06:05 06:05 WBC 6.0 RBC 4.09 Hgb 11.9 Hct 37.0 MCV 90.4 MCH 29.1 MCHC 32.1 RDW 19.5 H Plt Count 311 MPV 9.2 Absolute Neuts (auto) 4.4 Neutrophils % 73.4 Lymphocytes % 18.7 D Monocytes % 4.2 Eosinophils % 2.9 D Basophils % 0.8 Nucleated RBC % 0 Sodium 137 Potassium 3.6 Chloride 104 Carbon Dioxide 26 Anion Gap 6 L BUN 7.9 Creatinine 0.9 Est GFR (CKD-EPI)AfAm 95.34 Est GFR (CKD-EPI)NonAf 82.26 Random Glucose 94 Calcium 9.2 Phosphorus 3.3 Magnesium 2.0 Total Bilirubin 0.9 AST 23 ALT 25 Alkaline Phosphatase 62 Total Protein 7.6 Albumin 3.8 COVID-19 (CALLIE) Not detected HOSPITAL COURSE: 34 YO F PMH HTN (non compliant w/ rx) p/w weakness, dizziness, nausea, NBNB emesis, non-bloody diarrhea. BP was 185/109 & Troponin 0.32 & 0.33. Admitted for HTN emergency. Pt was given Labetalol for BP & zofran for nausea in ED. EKG showed normal sinus rhythm, possible Atrial enlargement w/ prolonged QTC of 516. Pt was started on nifedipine, aspirin, and atorvastatin. Pt was evaluated by tank wagon driver. Echo was ordered to assess wall abnormalities; moderate concentric L ventricular hypertrophy, trace tricuspid regurg. Pt's BP stabilized and symptoms improved. Repeat QTC showed Normal sinus rhythm with prolonged QTC of 500. Pt was advised to follow-up outpatient regarding prolonged QTC and instructed to consult physician about medications that may affect it. She was also advised to get a stress test outpt. Date of Admission:06/03/20 CT head: Empty sella turcica. Large 3 cm retention cyst vs polyp occupying L maxillary antrum EKG: normal sinus rhythm, possible Atrial enlargement w/ prolonged QTC of 516 Repeat EKG: Normal sinus rhythm with prolonged QTC of 500. Echo: moderate concentric L ventricular hypertrophy, trace tricuspid regurg Date of Discharge: 06/05/20 Minutes to complete discharge: 43 Discharge Summary Problems reviewed: Yes Reason For Visit: HYPERTENSIVE URGENCY,NAUSEA,VOMITTING Condition: Stable - Instructions Diet, Activity, Other Instructions: You came for dizziness, weakness, chills, and shortness of breath with exertion. You also reported vomiting and diarrhea. Your blood pressure was found to be elevated. Your cardiac enzymes was elevated. You were found to have hypertensive emergency. Please take your medications to keep your blood pressure under control. You are stable for discharge home. EKG of your heart showed your heart rhythm was found to have a prolonged QTc. Please avoid medications & herbs that can prolong your QTC and consult physician about medications, such as antihistamines, antibiotics such as azithromycin/erythromycin/ciprofloxacillin, antifungal medications, opiates, licorice extract, Cinchona, etc. FOLLOW-UP Please follow-up with tank wagon driver, Dr. Logan, for discussion to get a future stress test and for follow-up regarding your blood pressure managment and prolonged QTC. Please follow-up with your primary care physician, or come to the [facility], for general health maintenance. MEDICATIONS Please continue taking labetalol 200 mg orally twice a day. Please start nifedepine 90 mg orally once a day. Please continue monitoring your home blood pressure. Maintain a daily log, recording blood pressure at a relaxed rested state. Please follow a low sodium/low fat/low sugar/low carb diet. if pressure is > 160/100 please call your doctor If you experience new, worsening, or concerning symptoms, such as Shortness of breath, nausea, vomiting, chest pain, abdominal pain, etc. please return to the Emergency Department or call 911. Referrals: [facility] [place] [Provider Group] Walter Logan MD [Staff Physician] - Disposition: HOME - Home Medications Comprehensive Discharge Medication List: Ambulatory Orders Labetalol HCl [Normodyne -] 200 mg PO BID 06/03/20 Nifedipine ER [Procardia XL -] 90 mg PO DAILY 30 Days #30 [id number] 06/05/20 This patient is new to me today: No Emergency Visit: Yes ED Registration Date: 06/03/20 Care time: The patient presented to the Emergency Department on the above date and was hospitalized for further evaluation of their emergent condition. Critical Care patient: No - Discharge Referral Referred to [facility] No ATTENDING PHYSICIAN STATEMENT I saw and evaluated the patient. I reviewed the resident's note and discussed the case with the resident. I agree with the resident's findings and plan as documented. SUBJECTIVE: OBJECTIVE: ASSESSMENT AND PLAN:
== END 2020-06-05 18:20 | disposition home or self-care (01) ==
LOC: JER 13:18 → JERBED 18:12 → J4S 06-04 16:16
PROVIDERS: ADMIT Internal Medicine; ATTEND Internal Medicine
PROC: 3E023GC Introduction of Other Therapeutic Substance into Muscle, Percutaneous Approach (ICD-10-PCS; principal; 2020-06-03)
PROC: 3E033GC Introduction of Other Therapeutic Substance into Peripheral Vein, Percutaneous Approach (ICD-10-PCS; 2020-06-03)
DX: I16.0 Hypertensive urgency (principal); R79.89 Other specified abnormal findings of blood chemistry; Z91.14 Patient's other noncompliance with medication regimen; Z29.9 Encounter for prophylactic measures, unspecified; E66.9 Obesity, unspecified; Z68.34 Body mass index [BMI] 34.0-34.9, adult
CPT/HCPCS: 36415; 70450-TC; 80053; 81003; 83735; 84100; 84484; 84703; 85025; 93005; 93010; 93306-TC; 99285-25; G0378; U0003